=== PATIENT | female | born 1965 | race African-American/Black ===

== ENCOUNTER → 2016-11-18 | Outpatient (CLI) | payer BC ==
[~2016-11-18] VITALS: Ht 170.2 cm; Wt 77.1 kg
[~2016-11-18] MED LIST: Heparin Sod 1000 units/ml 10ml IV ONE; Lidocaine 1% Plain 30 ml INJ ONE; Sodium Bicarbonate 8.4% 50ml Inj IV ONE
--- NOTE | 2016-11-19 09:35 | Diagnostic Imaging Report ---
Indications: Needs long-term IV access Technique: Ultrasound confirms patent compressible left basilic vein. Total sterile technique, including sterile probe cover and sterile gel, hat, mask,, sterile gown, large sterile drape, and preparation with 2% chlorhexidine utilized. Local anesthesia with 1% lidocaine. Under real-time ultrasound guidance, puncture basilic vein using 21-gauge needle, documented and archived, passage 0.018 guidewire under direct fluoroscopy, which was used to determine appropriate catheter length, exchange for 5 [place] peel-away sheath. 5 [place] Bard dual-lumen power PICC cut to 41 cm. It was inserted through the peel-away sheath. Peel-away sheath and guidewire removed. Catheter fixed to the skin. Both catheter ports aspirated and flushed. Patient tolerated procedure well, without immediate complication. Digital radiograph documents satisfactory catheter tip position, at the cavoatrial junction. Total fluoroscopy time 0.2 minutes. Total dose area product 2.8 dGycm2 Impression: Successful placement of left arm PICC under sonographic and fluoroscopic guidance, as described above.
== END | disposition home or self-care (01) ==
LOC: RAD 15:48
DX: Z79.899 Other long term (current) drug therapy (principal)
CPT/HCPCS: 36569; 76937; J1644; J2001; J3490

== ENCOUNTER 2017-02-26 13:37 | Outpatient (CLI) | payer BC ==
[~2017-02-26] VITALS: Ht 170.2 cm; Wt 79.4 kg
[2017-02-26] MEDS ORDERED: Heparin 2000 units/Ns 1000ml INJ ONE (15:30)
[2017-02-26] MEDS ORDERED: Lidocaine 1% Plain 30 ml INJ ONE (15:30)
--- NOTE | 2017-02-26 16:02 | Diagnostic Imaging Report ---
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 The left upper extremity was prepped with alcohol. All elements of maximal sterile barrier technique were followed including usage of a cap, mask, sterile gown, sterile gloves, hand hygiene and a large sterile sheet. Sonographic evaluation of the upper extremity was performed demonstrating a patent and compressible brachial vein. Access was obtained under real-time ultrasound guidance and digital image was saved and archived. An .018 wire was introduced. Needle exchanged for a 5 [place] peel-away sheath. Measurements were obtained. A 5 [place] dual-lumen Power PICC line catheter was cut to 42 cm and introduced over the wire. Peel-away sheath and wire were removed.Catheter was secured to the skin using 2-0 Prolene suture. Both ports aspirate and flush easily. Fluoroscopic Images show distal tip in the superior vena cava. Total fluoroscopic time 0.1 minute. Impression: Successful placement of an upper extremity PICC line catheter
== END 2017-02-26 15:37 | disposition home or self-care (01) ==
LOC: RAD 13:37
DX: B99.9 Unspecified infectious disease (principal); A69.20 Lyme disease, unspecified
CPT/HCPCS: 36569; 76937; J1644; J2001

== ENCOUNTER 2017-02-28 14:25 | Outpatient (CLI) | payer BC | END 2017-02-28 16:25 | disposition home or self-care (01) | LOC: RAD 14:25 | DX: T80.212A Local infection due to central venous catheter, initial encounter (principal); X58.XXXA Exposure to other specified factors, initial encounter; Y93.9 Activity, unspecified; Y92.9 Unspecified place or not applicable ==

== ENCOUNTER 2017-10-08 13:43 | Outpatient (CLI) | payer BC ==
[~2017-10-08] VITALS: Ht 170.2 cm; Wt 81.6 kg
[2017-10-08] MEDS ORDERED: Lidocaine 1% Plain 30 ml INJ ONE (14:00)
[2017-10-08] MEDS ORDERED: Heparin 2000 units/Ns 1000ml INJ ONE (14:00)
--- NOTE | 2017-10-08 16:29 | Diagnostic Imaging Report ---
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 The right upper extremity was prepped with alcohol. All elements of maximal sterile barrier technique were followed including usage of a cap, mask, sterile gown, sterile gloves, hand hygiene and a large sterile sheet. Sonographic evaluation of the upper extremity was performed demonstrating a patent and compressible brachial vein. Access was obtained under real-time ultrasound guidance (with utilization of sterile gel and sterile probe cover) and digital image was saved and archived. An .018 wire was introduced. Needle exchanged for a 5 [place] peel-away sheath. Measurements were obtained. A 5 [place] dual-lumen Power PICC line catheter was cut to 40 cm and introduced over the wire. Peel-away sheath and wire were removed.Catheter was secured to the skin using 2-0 Prolene suture. Both ports aspirate and flush easily. Fluoroscopic images show distal tip in the superior vena cava. Total fluoroscopic time 1.5 minutes Impression: Successful placement of an upper extremity PICC line catheter
== END 2017-10-08 15:43 | disposition home or self-care (01) ==
LOC: RAD 13:43
DX: A69.20 Lyme disease, unspecified (principal); Z79.899 Other long term (current) drug therapy; B99.9 Unspecified infectious disease
CPT/HCPCS: 36569; 76937; J1644; J2001

== ENCOUNTER 2018-07-20 09:21 | Outpatient (CLI) | payer BC ==
[~2018-07-20] VITALS: Ht 172.7 cm; Wt 79.4 kg
[~2018-07-20 09:21] MED LIST changes: +Heparin 2000 units/Ns 1000ml INJ SCH; -Heparin Sod 1000 units/ml 10ml IV ONE; -Lidocaine 1% Plain 30 ml INJ ONE; +Lidocaine 1% Plain 30 ml INJ SCH; -Sodium Bicarbonate 8.4% 50ml Inj IV ONE
--- NOTE | 2018-07-20 10:21 | Pre-Procedure Note/Attestation ---
Pre-Procedure Note/Attestation Complete Prior to Procedure Planned Procedure: not applicable Procedure Narrative: PICC Indications for Procedure Pre-Operative Diagnosis: lyme disease Attestation I attest that I discussed the nature of the procedure; its benefits; risks and complications; and alternatives (and the risks and benefits of such alternatives ), prior to the procedure, with the patient (or the patient's legal territory representative). I attest that, if there was a reasonable possibility of needing a blood transfusion, the patient (or the patient's legal territory representative) was given the [facility] standardized written summary, pursuant to the [place] Blood Safety Act ([place] Health and Safety Code # 1645, as amended). I attest that I re-evaluated the patient just prior to the surgery and that there has been no change in the patient's H&P, except as documented below: Leonardo Rivera MD Jul 20, 2018 10:21
--- NOTE | 2018-07-20 10:22 | Brief Operative Note ---
Immediate Post Operative Note Operative Note Chief Complaint: needs IV access Pre-op Diagnosis: lyme disease Procedure: PICC Post-op Diagnosis: same as pre-op Surgeon: Francheska RIVERA Anesthesia: local Specimen: none Complications: none Condition: stable Fluids: none Estimated Blood Loss: none Implant(s) used?: No Leonardo Rivera MD Jul 20, 2018 10:22
--- NOTE | 2018-07-20 11:24 | Diagnostic Imaging Report ---
Indications: Needs long-term IV access Technique: Ultrasound confirms patent compressible left basilic vein. Total sterile technique, including sterile probe cover and sterile gel, hat, mask, sterile gown, large sterile drape, and preparation with 2% chlorhexidine utilized. Local anesthesia with 1% lidocaine. Under real-time ultrasound guidance, puncture basilic vein using 21-gauge needle, documented and archived, passage 0.018 guidewire under direct fluoroscopy, which was used to determine appropriate catheter length, exchange for 5 [place] peel-away sheath. 5 [place] Bard dual-lumen power PICC cut to 46 cm. It was inserted through the peel-away sheath. Peel-away sheath and guidewire removed. Catheter fixed to the skin. Both catheter ports aspirated and flushed. Patient tolerated procedure well, without immediate complication. Digital radiograph documents satisfactory catheter tip position, at the cavoatrial junction. Total fluoroscopy time 0.2 minutes. Total dose area product 6 dGycm2 Total number of images: 1 Impression: Successful placement of left arm PICC under sonographic and fluoroscopic guidance, as described above.
== END 2018-07-20 11:21 | disposition home or self-care (01) ==
LOC: RAD 09:21
DX: A69.20 Lyme disease, unspecified (principal); B99.9 Unspecified infectious disease; Z45.2 Encounter for adjustment and management of vascular access device
CPT/HCPCS: 36569; 76937; J1644; J2001